=== PATIENT | female | born 1960 | race Caucasian/White ===

== ENCOUNTER 2017-09-22 09:54 | Emergency (ER) | payer OTHER ==
[~2017-09-22] VITALS: Ht 160 cm; Wt 56.6 kg
[~2017-09-22 09:54] MED LIST: ASPIRIN EC325 MG PO; CIPRO500 MG PO; FLAGYL500 MG PO; NAPROSYN500 MG PO; OMEPRAZOLE40 M1 PO; SUBOXONE 2 MG-1 EACH PO; SYNTHROID75 MCG PO; TORADOL10 MG PO; ZOFRAN ODT4 MG PO
[2017-09-22 10:27] LABS: POINT-OF-CARE METER ID UU13113778
[2017-09-22 11:27] LABS: HEMATOCRIT 39.2 % (36.0-46.0); MCH 30.1 PG (29.0-34.0); MCHC 33.9 G/DL (30.0-36.0); MCV 88.7 FL (83-99); MEAN PLAT.VOLUME 10.3 uM^3 (9.5-12.4); PLATELET COUNT 223 K/uL (156-360); RBC DIS.WIDTH-CV 11.9 % (11.8-14.6); RBC DIS.WIDTH-SD 38.9 % (39-53); RED BLOOD COUNT 4.42 M/uL (3.80-5.20); WHITE BLOOD COUNT 6.2 K/uL (4.1-10.2)
[2017-09-22 11:35] LABS: CHLORIDE 106 mEq/L (99-109); POTASSIUM 4.3 mEq/L (3.7-5.4); SODIUM 142 mEq/L (136-147)
[2017-09-22 11:36] LABS: GLUCOSE 110 mg/dL (70-99)
[2017-09-22 11:38] LABS: ANION GAP 11 MEQ/L (2-14)
[2017-09-22 11:40] LABS: GFR ESTIMATE (CALCULATED) > 59 mL/min/
[2017-09-22 11:41] LABS: UREA NITROGEN (BUN) 11 mg/dL (9-23)
[2017-09-22] MEDS ORDERED: ATIVAN0.5 MG PO (12:34)
[2017-09-22 12:49] VITALS: BP 122/73
== END 2017-09-22 12:57 | disposition home or self-care (01) ==
LOC: EME 09:54
DX: H93.19 Tinnitus, unspecified ear (principal); R51 Headache; M54.2 Cervicalgia; R20.0 Anesthesia of skin; Z86.73 Personal history of transient ischemic attack (TIA), and cerebral infarction without residual deficits; Z79.82 Long term (current) use of aspirin; Z87.891 Personal history of nicotine dependence
CPT/HCPCS: 70450; 71020; 80048; 82948; 85027; 93005; 99281; 99284